=== PATIENT | female | born 1960 | race Two or more races ===

== ENCOUNTER 2019-10-09 10:44 | Emergency (ER) | payer OTHER ==
[~2019-10-09] VITALS: Ht 167.6 cm; Wt 81.6 kg
--- NOTE | 2019-10-09 10:44 | NUR ---
ED Nurse Note: PT BROUGHT IN BY RA 26 FROM HOME PRESENTS TO ED WITH ALLERGCI REACTION X 2 DAYS FROM UNKNOWN SOURCE. EPI 0.5MG IM, ZOFRAN 4MG PO AND BENADRYL 50MG IVP GIVEN BY EMS. PT REPORTS TOUNGE SWELLING THIS MORNING. PT ALSO HAD ALLERGIC REACTION 4 DAYS AGO ANDWAS DC WITH BENADRYL PRESCRIPTION. AAO X4, AMBULATORY WITH NON LABORED BREATHING. SPEAKS IN FULL SENTENCES. NO TONGUE SWELLING AT THIS TIME.
[2019-10-09 10:50] VITALS: BP 92/55
[2019-10-09] MEDS ORDERED: Solu-MEDROL 125mg Inj IVP ONE (11:00)
--- NOTE | 2019-10-09 11:21 | NUR ---
ED Nurse Note: DAUGHTER AT THE BED SIDE. PT IS WITH NO ACUTE DISTRESS. WARM BLANKETS PROVIDED.
[2019-10-09 12:42] VITALS: BP 110/65
--- NOTE | 2019-10-09 13:00 | NUR ---
ED Nurse Note: DR LUGO AT THE BED SIDE WITH FAMILY MEMBERS.
[2019-10-09] MEDS ORDERED: PREDNISONE20 MG ORAL (13:49)
--- NOTE | 2019-10-09 13:50 | Emergency Room Report ---
History of Present Illness General Chief Complaint: General Complaint Source: Patient, Medical Record Present Illness HPI 59-year-old female who presents with moderate amount of swelling to her left neck and tongue since yesterday. Patient reports she has had similar reactions in the past. So when she realized this reaction started she took Benadryl last night with minimal improvement. She reports she also took 25 mg this morning. EMS administered 50 mg IV Benadryl and 0.5 mg epinephrine. Patient states the swelling is improved now. She denies any difficulty breathing, cough, congestion, chest pain, nausea, vomiting. She has had testing and does not know the cause of her swelling. She is not taking any ISA inhibitors. Past medical history is significant for type 2 diabetes and high cholesterol Social history includes everyday smoker Allergies: Coded Allergies: No Known Allergies (Unverified , 10/09/19) Patient History Last Menstrual Period: N/A Now: No Nursing Documentation-PMH Hx Cardiac Problems: Yes - high cholesterol Hx Diabetes: Yes - Type 2 Review of Systems Constitutional: Denies: chills, fever ENT: Reports: other - Tongue swelling and left neck swelling; Denies: ear pain , nose congestion, throat pain, throat swelling Respiratory: Denies: cough, shortness of breath Cardiovascular: Denies: chest pain, palpitations Gastrointestinal: Denies: diarrhea, vomiting Genitourinary: Denies: hematuria, pain Musculoskeletal: Denies: joint swelling Skin: Denies: rash, lesions Neurological: Denies: headache, dizziness Physical Exam Vital Signs Date Time Temp Pulse Resp B/P (MAP) Pulse Ox O2 Delivery O2 Flow Rate FiO2 10/09/19 10:28 97.9 100 132/114 (120) 97 Room Air 10/09/19 10:44 18 Sp02 EP Interpretation: reviewed General Appearance: well appearing, no apparent distress, non-toxic Head: normocephalic, atraumatic Eyes: bilateral eye normal inspection ENT: hearing grossly normal, EOM grossly intact, normal pharynx, uvula midline , moist mucus membranes, other - Mild edema to left tongue Neck: supple, thyroid normal, other - Mild edema to left upper neck, no erythema, no stridor Respiratory: lungs clear, normal breath sounds, no rhonchi, no respiratory distress, no retraction, speaking full sentences Cardiovascular #1: regular rate, rhythm, no edema, no gallop, normal capillary refill Cardiovascular #2: 2+ radial (R), 2+ radial (L) Gastrointestinal: soft, non-distended Rectal: deferred Musculoskeletal: moves extm spontaneously, no lower extremity edema Neurologic: grossly normal Psychiatric: mood/affect normal Skin: warm/dry, normal turgor Medical Decision Making Reevaluation Time: 13:48 Last Vital Signs Date Time Temp Pulse Resp B/P (MAP) Pulse Ox O2 Delivery O2 Flow Rate FiO2 10/09/19 12:42 98.2 82 16 110/65 99 Room Air Status: improved Reevaluation Impression Improved, no airway obstruction. Patient is stable for outpatient follow-up and discharge Disposition: HOME, SELF-CARE Condition: Stable Scripts Prednisone* (PREDNISONE*) 20 Mg Tablet 40 MG ORAL DAILY for 5 Days, #5 TAB Prov: Ady Sherman M.D. 10/09/19 Referrals: [facility] (PCP) Patient Instructions: Angioedema Ady Sherman M.D. Oct 09, 2019 13:49
[2019-10-09 14:09] VITALS: BP 115/62
--- NOTE | 2019-10-09 14:09 | NUR ---
ER DISCHARGE NOTE: Patient is cleared to be discharged per ERMD, pt is aox4, on room air, with stable vital signs. pt was given dc and prescription instructions, pt was able to verbalize understanding, pt id band and iv site removed without complications. pt is able to ambulate with steady gait. pt took all belongings and left with her family members.
== END 2019-10-09 14:09 | disposition home or self-care (01) ==
LOC: EDBD 10:44 → EMR 11:00
DX: R22.1 Localized swelling, mass and lump, neck (principal); E11.9 Type 2 diabetes mellitus without complications; E78.00 Pure hypercholesterolemia, unspecified; Z87.891 Personal history of nicotine dependence; R60.0 Localized edema
CPT/HCPCS: 96361; 96374; 96375; J2930; J7030; S0028; Z7502; 99284